=== PATIENT | female | born 1950 | race Caucasian/White ===

== ENCOUNTER 2021-01-01 13:31 | Emergency (ER) | payer MEDICARE, OTHER ==
[2021-01-01 16:26] LABS: BASOPHIL 0.5 % (0-2); EOSINOPHIL 0.8 % (0-7); HCT 40.4 % (37.0-47.0); HGB 13.7 g/dl (12.5-16.0); LYMPHOCYTE 25.3 % (15-48); MCH 28.5 pg (25.0-31.0); MCHC 33.9 g/dL (32.0-36.0); MCV 84.2 fL (78.0-100.0); MONOCYTE 6.7 % (0-12); MPV 10.2 fL (6.0-9.5); NEUTROPHIL 66.3 % (41-80); NRBC 0; PLT 207 K/uL (150-400); RDW 13.3 % (11.5-14.0); WBC 8.3 K/uL (4.0-10.5)
[2021-01-01 16:29] LABS: BILIRUBIN NEGATIVE (NEGATIVE); BLOOD TRACE-INTACT Ery/uL (NEGATIVE); CLARITY CLEAR (CLEAR); COLOR YELLOW (YELLOW); GLUCOSE (U) 3+ mg/dL (NORMAL); LEUKOCYTES NEGATIVE Leu/uL (NEGATIVE); NITRITE POSITIVE (NEGATIVE); PROTEIN 1+ mg/dL (NEGATIVE); SPECIFIC GRAVITY >=1.030 (1.001-1.030); UROBILINOGEN 0.2 mg/dL (0.2-1.0); pH 5.5 (5.0-9.0)
[2021-01-01 16:31] LABS: AMPHETAMINES NEGATIVE (NEGATIVE); BARBITURATES NEGATIVE (NEGATIVE); ECSTASY (MDMA) NEGATIVE (NEGATIVE); MARIJUANA (THC) NEGATIVE (NEGATIVE); METHADONE NEGATIVE (NEGATIVE); OPIATES NEGATIVE (NEGATIVE); OXYCODONE NEGATIVE (NEGATIVE)
[2021-01-01 16:37] LABS: BACTERIA 1+
[2021-01-01 16:58] LABS: ALBUMIN 3.5 g/dL (3.4-5.0); ALKALINE PHOSHATASE 123 U/L (46-116); ALT 15 U/L (14-59); AST 12 U/L (15-37); BILIRUBIN - TOTAL 0.6 mg/dL (0.2-1.0); BUN 15 mg/dL (7-18); BUN/CREAT RATIO (CALC) 25.9 RATIO; CHLORIDE 99 mmol/L (98-107); CO2 (BICARBONATE) 25 mmol/L (21-32); CREATININE 0.58 mg/dL (0.51-0.95); GLOBULIN (CALCULATION) 3.2 g/dL; GLUCOSE 305 mg/dL (74-106); POTASSIUM 3.3 mmol/L (3.5-5.1); TOTAL PROTEIN 6.7 g/dL (6.4-8.2)
== END 2021-01-01 19:31 | disposition home or self-care (01) ==
LOC: FER 13:31
PROVIDERS: Emergency Medicine
DX: M54.9 Dorsalgia, unspecified (principal); G89.29 Other chronic pain; E11.9 Type 2 diabetes mellitus without complications; I10 Essential (primary) hypertension; I25.10 Atherosclerotic heart disease of native coronary artery without angina pectoris; J44.9 Chronic obstructive pulmonary disease, unspecified; I69.954 Hemiplegia and hemiparesis following unspecified cerebrovascular disease affecting left non-dominant side; F17.210 Nicotine dependence, cigarettes, uncomplicated
CPT/HCPCS: 36415; 71045; 72100; 80053; 80305; 81001; 85025; 87076; 87088; 87186; G0480; J1885

== ENCOUNTER 2021-01-15 09:24 | Inpatient (IN) | payer MEDICARE, OTHER ==
[2021-01-15 09:57] LABS: BASOPHIL 0.8 % (0-2); EOSINOPHIL 0.9 % (0-7); HCT 40.3 % (37.0-47.0); HGB 13.6 g/dl (12.5-16.0); LYMPHOCYTE 19.8 % (15-48); MCH 28.4 pg (25.0-31.0); MCHC 33.7 g/dL (32.0-36.0); MCV 84.1 fL (78.0-100.0); MONOCYTE 5.9 % (0-12); MPV 10.5 fL (6.0-9.5); NEUTROPHIL 72.2 % (41-80); NRBC 0; PLT 214 K/uL (150-400); RBC 4.79 M/uL (4.20-5.40); RDW 13.2 % (11.5-14.0); WBC 7.4 K/uL (4.0-10.5)
[2021-01-15 10:02] LABS: BILIRUBIN NEGATIVE (NEGATIVE); BLOOD TRACE-INTACT Ery/uL (NEGATIVE); CLARITY CLEAR (CLEAR); COLOR YELLOW (YELLOW); GLUCOSE (U) 3+ mg/dL (NORMAL); LEUKOCYTES NEGATIVE Leu/uL (NEGATIVE); NITRITE NEGATIVE (NEGATIVE); PROTEIN TRACE (LOW) mg/dL (NEGATIVE); SPECIFIC GRAVITY 1.015 (1.001-1.030)
[2021-01-15 10:03] LABS: AMPHETAMINES NEGATIVE (NEGATIVE); BARBITURATES NEGATIVE (NEGATIVE); ECSTASY (MDMA) NEGATIVE (NEGATIVE); MARIJUANA (THC) NEGATIVE (NEGATIVE); METHADONE NEGATIVE (NEGATIVE); OPIATES NEGATIVE (NEGATIVE); OXYCODONE NEGATIVE (NEGATIVE)
[2021-01-15 10:04] LABS: INR 0.96 (0.9-1.2); PROTHROMBIN TIME 12.1 SECONDS (11.4-13.6); PTT 28.2 SECONDS (22.2-34.7)
[2021-01-15 10:10] LABS: BACTERIA 1+; YEAST PRESENT
[2021-01-15 10:11] LABS: ALBUMIN 3.3 g/dL (3.4-5.0); BILIRUBIN - TOTAL 0.4 mg/dL (0.2-1.0); BUN/CREAT RATIO (CALC) 33.9 RATIO; CREATININE 0.59 mg/dL (0.51-0.95); GLOBULIN (CALCULATION) 2.9 g/dL; POTASSIUM 4.4 mmol/L (3.5-5.1); TOTAL PROTEIN 6.2 g/dL (6.4-8.2)
[2021-01-15 10:24] LABS: CKMB 1.9 ng/mL (0.0-3.6)
--- NOTE | 2021-01-15 15:24 | NUR ---
CALLED [facility] TWICE LET RING FOR 20 MIN AND NO ANSWER, BUT WAS HUNG UP ON. 01/15/21 @ [id number]
[2021-01-15] MEDS ORDERED: PRINIVIL10 MG PO (16:43)
[2021-01-15] MEDS ORDERED: JARDIANCE25 MG PO (16:44)
[2021-01-15] MEDS ORDERED: METFORMIN HCL500 MG PO (16:45)
[2021-01-15] MEDS ORDERED: PROTONIX 40MG T40 MG PO (16:45)
[2021-01-15] MEDS ORDERED: ATORVASTATIN CA80 MG PO (16:46)
[2021-01-15] MEDS ORDERED: SYNTHROID25 MCG PO (16:47)
[2021-01-15] MEDS ORDERED: HUMALOG 75100 UNIT/M SQ (16:47)
[2021-01-15] MEDS ORDERED: NORCO 5-325 TA1 EACH PO (16:48)
[2021-01-16 05:13] LABS: BUN/CREAT RATIO (CALC) 38.2 RATIO; CREATININE 0.68 mg/dL (0.51-0.95); POTASSIUM 4.3 mmol/L (3.5-5.1); URIC ACID 3.3 mg/dL (2.6-6.2)
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
--- NOTE | 2021-01-16 11:21 | NUR ---
PER , PT IS NOT A CANDIATE FOR SURGERY, BUT WILL NEED REHAB. DISCUSSED WITH PT. VIA PHONE SHE IS COVID POS. SHE COULD NOT GIVE INFORMATON REGARDING HER FIRST COVID TEST, BUT IT WAS SOMETIME AGO. I ADVISED HER THAT HER OPTION FOR REHAB AT THIS TIME IS [facility] DUE TO HER POS COVID TEST. PT. STATED THAT WOULD BE FINE AND TO MAKE THE REFERRAL. DR. LANDEROS WILL HAVE PHYSICAL THERAPY TO SEE PT. IN THE MORNING THEY ARE NOT WORKING ON SUNDAY. I ADVISED DR. LANDEROS THAT PT. IS A [facility] MEDICARE ADVANTAGE AND WILL REQUIRE AN AUTH.
[2021-01-17 03:56] LABS: BUN/CREAT RATIO (CALC) 38.8 RATIO; CREATININE 0.67 mg/dL (0.51-0.95); POTASSIUM 4.3 mmol/L (3.5-5.1)
--- NOTE | 2021-01-17 15:05 | NUR ---
SPOKE WITH JAYDA, SHE ADVISED THE ONLY FACILITY AVAILABLE IS IN [place]. ADVISED MS. LOGAN OF THE LOCATION OF THE FACILITY. SHE DECLINED AND SAID SHE WANTED TO HOME. SHE WILL ACCEPT HH. SHE REQUESTED [facility]. SHE SAID THAT SHE WOULD NEED A ROLLING WALKER, WHEELCHAIR AND 01/17. ADVISED MS. LOGAN I WOULD SEND REQUEST TO [facility], BUT HER INSURNACE WOULD DETERMINED IF SHE COULD GET A ROLLING WALKER AND WHEELCHAIR AT THE SAME TIME. SENT REQUEST TO [facility] IS TO CALL HER WITH THE DETERMINATION. TC. TO MR. CHO, PT. BOYFRIEND. HE WAS NOT IN AGREEMENT FOR PT. TO GO TO [place] AND WANTED HER TO COME HOME. HE STATED THAT HE CAN PICK HER UP BETWEEN 9-10 A.M. Sunday.
--- NOTE | 2021-01-17 15:07 | NUR ---
ADVISED NURSEMAUREEN OF THE PLANS FOR PT. TO RETURN HOME.
[2021-01-18 03:45] LABS: CREATININE 0.54 mg/dL (0.51-0.95); POTASSIUM 4.2 mmol/L (3.5-5.1)
--- NOTE | 2021-01-18 08:25 | NUR ---
0810-PT CALLED OUT C/O CP, PT RESTING IN BED, NO SIGNS OF DISTRESS, CALLED FOR EKG STAT, MD NOTIFIED, ORDER FOR TROPONIN RECIEVED, EKG DONE AND BLOOD SENT TO LAB, PT REPORTS CP HAS BEEN GOING ON ALL MORNING. ALL VITALS STABLE, WILL CONTINUE TO MONITOR
--- NOTE | 2021-01-18 13:58 | NUR ---
FOUND THAT [facility] IN [place] WILL ACCEPT COVID POS. PERMISSION FROM PT. TO SEND A REFERRAL TO [facility]. SENT REFERRAL VIA [facility]...
--- NOTE | 2021-01-18 16:16 | NUR ---
[facility] ADVISED THEY COULD NOT OFFER A BED. SENT REFERRALS TO MULTIPLE FACILITIES. REBEKAHESTUARDO [facility] WOULD BE WILLING TO LOOK AT THE PT. IF I CAN LOCATE THE FIRST COVID TEST. ASKED PT. AND SHE THINKS SHE WAS AT [facility] WHEN TESTED. CALLED [facility] AND SPOKE WITH AMALIA. HE IS GOING TO TRY TO FIND THE INFORMATION AND FAX TO ME.
[2021-01-19 03:59] LABS: BUN/CREAT RATIO (CALC) 34.8 RATIO; CREATININE 0.66 mg/dL (0.51-0.95); POTASSIUM 4.3 mmol/L (3.5-5.1)
--- NOTE | 2021-01-19 14:32 | NUR ---
PER JAYDA AT [facility] SHE HAS FOUND AN ACCEPTING FACILITY AT [facility] IN [place]. PT. IS REFUSING PLACEMENT. ADVISED DR. OLIVEIRA OF PT. REFUSAL. HE IS TO SPEAK WTIH PATIENT.
--- NOTE | 2021-01-19 14:56 | NUR ---
SPOKE WITH PT. AGAIN, SHE IS NOW AGREEABLE TO GO TO [facility]. TC STAS MONTELONGO SHE WILL START AUTH PROCESS.
--- NOTE | 2021-01-19 15:10 | NUR ---
PT. HAS CHANGED HER MIND AND WANTS TO GO HOME. TC TO [facility] AND EXPLAINED THAT SHE IS NOW REFUSING REHAB AGAIN AND WANTS TO COME HOME. HE STATED THAT HE COULD NOT PICK HER UP UNTIL LATER TONIGHT. MADE REFERRAL TO [facility]. [facility] DELIVER[facility] A WHEELCHAIR AND 01/17.
--- NOTE | 2021-01-19 15:28 | NUR ---
VERIFIED WITH JOSE FRANCISCO AT [facility] THAT PT ONLY QUALIFED FOR WHEELCHAIR AND 01/17. ADVISED KRISTEN CRONIN OF THE INFORMATION. PER MG LUANR. MED/SURG, JUST NOTIFIED [facility] THAT PT. HAS TOLD NURSE HER DAUGHTER IS COMING TO GET HER.
[2021-01-19] MEDS ORDERED: NORCO 5-325 TA1 EACH PO (17:03)
== END 2021-01-19 19:00 | disposition home health service (06) | DRG 535 ==
LOC: FER 09:24 → FMS 11:33
PROVIDERS: Emergency Medicine; ADMIT Allergy & Immunology Allergy
DX: S72.112A Displaced fracture of greater trochanter of left femur, initial encounter for closed fracture (principal); U07.1 COVID-19; I21.A1 Myocardial infarction type 2; W19.XXXA Unspecified fall, initial encounter; Y92.009 Unspecified place in unspecified non-institutional (private) residence as the place of occurrence of the external cause; E11.65 Type 2 diabetes mellitus with hyperglycemia; I10 Essential (primary) hypertension; E78.5 Hyperlipidemia, unspecified; E03.9 Hypothyroidism, unspecified; I25.10 Atherosclerotic heart disease of native coronary artery without angina pectoris; Z88.6 Allergy status to analgesic agent; Z86.73 Personal history of transient ischemic attack (TIA), and cerebral infarction without residual deficits; Z79.4 Long term (current) use of insulin; F17.200 Nicotine dependence, unspecified, uncomplicated
CPT/HCPCS: 36415; 71045; 72170; 73600; 73700; 80048; 80053; 80061; 80305; 81001; 82553; 82962; 83036; 84443; 84484; 84550; 85025; 85610; 85730; 93005; 97110; 97116; 97162; 97166; 97530-GP; 97535; J1170; J1650; J2405; J7030; U0002

== ENCOUNTER 2021-03-04 17:11 | Emergency (ER) | payer MEDICARE, OTHER ==
[~2021-03-04 17:11] MED LIST: ATORVASTATIN CA80 MG PO; HUMALOG 75100 UNIT/M SQ; JARDIANCE25 MG PO; METFORMIN HCL500 MG PO; NORCO 5-325 TA1 EACH PO; PRINIVIL10 MG PO; PROTONIX 40MG T40 MG PO; SYNTHROID25 MCG PO
== END 2021-03-04 20:51 | disposition home or self-care (01) ==
LOC: FER 17:11
DX: S00.93XA Contusion of unspecified part of head, initial encounter (principal); M25.571 Pain in right ankle and joints of right foot; M25.572 Pain in left ankle and joints of left foot; E11.9 Type 2 diabetes mellitus without complications; E03.9 Hypothyroidism, unspecified; Z86.73 Personal history of transient ischemic attack (TIA), and cerebral infarction without residual deficits; W22.8XXA Striking against or struck by other objects, initial encounter; Y92.009 Unspecified place in unspecified non-institutional (private) residence as the place of occurrence of the external cause
CPT/HCPCS: 70450; 72125

== ENCOUNTER 2021-05-26 19:54 | Emergency (ER) | payer MEDICARE, OTHER ==
[2021-05-26 21:00] LABS: BASOPHIL 0.6 % (0-2); EOSINOPHIL 1.3 % (0-7); HCT 40.9 % (37.0-47.0); HGB 14.3 g/dl (12.5-16.0); LYMPHOCYTE 30.8 % (15-48); MCH 28.7 pg (25.0-31.0); MONOCYTE 6.2 % (0-12); MPV 10.8 fL (6.0-9.5); NRBC 0; PLT 168 K/uL (150-400); RBC 4.99 M/uL (4.20-5.40); RDW 13.3 % (11.5-14.0); WBC 6.9 K/uL (4.0-10.5)
[2021-05-26 21:18] LABS: ALBUMIN 3.3 g/dL (3.4-5.0); BILIRUBIN - TOTAL 0.5 mg/dL (0.2-1.0); BUN/CREAT RATIO (CALC) 24.6 RATIO; CREATININE 0.57 mg/dL (0.51-0.95); GLOBULIN (CALCULATION) 2.7 g/dL; POTASSIUM 3.8 mmol/L (3.5-5.1)
[2021-05-26 21:44] LABS: BILIRUBIN NEGATIVE (NEGATIVE); BLOOD NEGATIVE Ery/uL (NEGATIVE); CLARITY CLEAR (CLEAR); COLOR YELLOW (YELLOW); GLUCOSE (U) 3+ mg/dL (NORMAL); LEUKOCYTES NEGATIVE Leu/uL (NEGATIVE); NITRITE NEGATIVE (NEGATIVE); PROTEIN TRACE (LOW) mg/dL (NEGATIVE); SPECIFIC GRAVITY 1.015 (1.001-1.030); UROBILINOGEN 0.2 mg/dL (0.2-1.0)
[2021-05-26 21:52] LABS: AMORPHOUS URATES CRYSTALS LARGE; BACTERIA 1+; GRANULAR CASTS TRACE
[2021-05-26] MEDS ORDERED: METFORMIN HCL500 MG PO (22:02)
== END 2021-05-26 22:32 | disposition home or self-care (01) ==
LOC: FER 19:54
PROVIDERS: Emergency Medicine
DX: R73.9 Hyperglycemia, unspecified (principal); J44.9 Chronic obstructive pulmonary disease, unspecified; F17.210 Nicotine dependence, cigarettes, uncomplicated; Z86.73 Personal history of transient ischemic attack (TIA), and cerebral infarction without residual deficits
CPT/HCPCS: 36415; 71046; 80053; 81001; 85025

== ENCOUNTER 2021-10-17 15:15 | Day surgery (SDCO) | payer MEDICARE, OTHER ==
[~2021-10-17] VITALS: Ht 162.6 cm; Wt 78.6 kg
[2021-10-17 16:41] LABS: BASOPHIL 0.7 % (0-2); EOSINOPHIL 1.3 % (0-7); HCT 47.3 % (37.0-47.0); HGB 15.8 g/dl (12.5-16.0); LYMPHOCYTE 20.9 % (15-48); MCH 28.3 pg (25.0-31.0); MCHC 33.4 g/dL (32.0-36.0); MCV 84.6 fL (78.0-100.0); MONOCYTE 6.5 % (0-12); MPV 11.3 fL (6.0-9.5); NEUTROPHIL 70.3 % (41-80); NRBC 0; PLT 186 K/uL (150-400); RBC 5.59 M/uL (4.20-5.40); WBC 7.6 K/uL (4.0-10.5)
[2021-10-17 16:55] LABS: ALBUMIN 3.9 g/dL (3.4-5.0); BILIRUBIN - TOTAL 0.4 mg/dL (0.2-1.0); BUN/CREAT RATIO (CALC) 30.9 RATIO; CREATININE 0.55 mg/dL (0.51-0.95); GLOBULIN (CALCULATION) 3.8 g/dL; POTASSIUM 3.8 mmol/L (3.5-5.1); TOTAL PROTEIN 7.7 g/dL (6.4-8.2)
[2021-10-17 17:24] LABS: BILIRUBIN NEGATIVE (NEGATIVE); BLOOD NEGATIVE Ery/uL (NEGATIVE); CLARITY CLEAR (CLEAR); COLOR YELLOW (YELLOW); GLUCOSE (U) 3+ mg/dL (NORMAL); LEUKOCYTES NEGATIVE Leu/uL (NEGATIVE); NITRITE NEGATIVE (NEGATIVE); PROTEIN NEGATIVE (NEGATIVE); SPECIFIC GRAVITY 1.015 (1.001-1.030); UROBILINOGEN 0.2 mg/dL (0.2-1.0)
[2021-10-18 06:15] LABS: BASOPHIL 0.5 % (0-2); EOSINOPHIL 1.2 % (0-7); HCT 41.3 % (37.0-47.0); HGB 13.6 g/dl (12.5-16.0); LYMPHOCYTE 23.3 % (15-48); MCH 27.7 pg (25.0-31.0); MCHC 32.9 g/dL (32.0-36.0); MCV 84.1 fL (78.0-100.0); MONOCYTE 6.2 % (0-12); MPV 10.8 fL (6.0-9.5); NEUTROPHIL 68.4 % (41-80); NRBC 0; PLT 182 K/uL (150-400); RBC 4.91 M/uL (4.20-5.40); RDW 13.1 % (11.5-14.0); WBC 7.5 K/uL (4.0-10.5)
[2021-10-18 06:48] LABS: BUN/CREAT RATIO (CALC) 24.2 RATIO; CREATININE 0.62 mg/dL (0.51-0.95); POTASSIUM 3.9 mmol/L (3.5-5.1)
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
--- NOTE | 2021-10-19 02:26 | NUR ---
TOOK OVER PT @ [id number]....KRISTEN VALE.
--- NOTE | 2021-10-19 02:33 | NUR ---
10/18/212229 PT WAS EDUCATED ON DRINKING THE MIRALAX TO GET CLEAR BEFORE HER SCOPE SCHEDULED FOR TOMORROW. PT. STATED THAT SHE DID NOT WANT TO DRINK IT. I TOLD HER THAT THEY WOULD NOT BE ABLE TO SCOPE HER UNLESS HER BOWELS WERE CLEAR. PT. STATED THAT SHE UNDERSTOOD. WILL CONTINUE TO MONITOR. ER,RN
--- NOTE | 2021-10-19 02:38 | NUR ---
THIS NURSE ATTEMPTING TO GET PT TO DRINK THE MIRALX ORDERED SO THAT TESTING MAY BY COMPLETED TOMORROW BUT PT REFUSING. "I JUST CANT DRINK ANYMORE". WILL CONT TO TRY TO GET HER TO CONSUME MUCH POSSIBLE.
--- NOTE | 2021-10-19 03:37 | NUR ---
protonix appears late however, per report it was not pulled because pt is on a drip & others isn't finished yet. It remains unfinished. This murse is monitoring.
--- NOTE | 2021-10-19 15:41 | NUR ---
10/19/21 Ms. Powers co-owns a house with her BF. Her daughter, the daughter's boyfriend, and a 20 y/o grandson live in the home. She reports to have a rw. Ms. Powers reports to be modified independent with her ALDs and mobility. Her daughter performs the houseworks.
[2021-10-20 06:30] LABS: BASOPHIL 0.7 % (0-2); EOSINOPHIL 1.3 % (0-7); HCT 38.8 % (37.0-47.0); HGB 12.8 g/dl (12.5-16.0); LYMPHOCYTE 25.5 % (15-48); MCH 27.9 pg (25.0-31.0); MCV 84.5 fL (78.0-100.0); MONOCYTE 7.4 % (0-12); NEUTROPHIL 64.8 % (41-80); NRBC 0; PLT 165 K/uL (150-400); RBC 4.59 M/uL (4.20-5.40); RDW 13.2 % (11.5-14.0)
[2021-10-20 07:07] LABS: ALBUMIN 2.7 g/dL (3.4-5.0); BILIRUBIN - TOTAL 0.7 mg/dL (0.2-1.0); BUN/CREAT RATIO (CALC) 25.4 RATIO; CREATININE 0.59 mg/dL (0.51-0.95); GLOBULIN (CALCULATION) 2.9 g/dL; POTASSIUM 3.7 mmol/L (3.5-5.1)
[2021-10-20 07:41] LABS: TOTAL PROTEIN 5.6 g/dL (6.4-8.2)
[2021-10-20] MEDS ORDERED: CARAFATE1 GM PO (14:04)
[2021-10-20] MEDS ORDERED: MIRALAX17 GM PO (14:04)
--- NOTE | 2021-10-20 15:15 | NUR ---
10/20/21 Ms. Powers would like [facility] and a wc from [facility]. Jac Haney ordered the wc through [facility]. Ms. Powers does not have a PCP. The Resource rod piler danitza and appointment with Dr. Vanessa on 10/27/21 at 2:30. Luana with [facility] will contact Dr. Vanessa's office after the appointment to request HH orders.
== END 2021-10-20 17:40 | disposition home health service (06) ==
LOC: FER 15:15 → FMS 17:55 → FTCU 17:55 → FMS 10-18 21:19
PROVIDERS: Internal Medicine; Nurse Practitioner; ADMIT Internal Medicine
DX: K31.89 Other diseases of stomach and duodenum (principal); K22.10 Ulcer of esophagus without bleeding; K29.80 Duodenitis without bleeding; K25.9 Gastric ulcer, unspecified as acute or chronic, without hemorrhage or perforation; K44.9 Diaphragmatic hernia without obstruction or gangrene; K63.89 Other specified diseases of intestine; K64.4 Residual hemorrhoidal skin tags; K59.09 Other constipation; F03.90 Unspecified dementia, unspecified severity, without behavioral disturbance, psychotic disturbance, mood disturbance, and anxiety; I69.354 Hemiplegia and hemiparesis following cerebral infarction affecting left non-dominant side; E11.9 Type 2 diabetes mellitus without complications; I10 Essential (primary) hypertension; E78.5 Hyperlipidemia, unspecified; E03.9 Hypothyroidism, unspecified; I25.10 Atherosclerotic heart disease of native coronary artery without angina pectoris; J44.9 Chronic obstructive pulmonary disease, unspecified; F17.210 Nicotine dependence, cigarettes, uncomplicated; Z86.16 Personal history of COVID-19; Z79.4 Long term (current) use of insulin; Z79.84 Long term (current) use of oral hypoglycemic drugs; Z79.899 Other long term (current) drug therapy; Z95.1 Presence of aortocoronary bypass graft; Z20.822 Contact with and (suspected) exposure to COVID-19
CPT/HCPCS: 36415; 80048; 80053; 81003; 82962; 83036; 83690; 84145; 84484; 85025; 93005; 97162; 97166; 97530-GP; 97535; C9113; G0378; J2270; J2405; J2550; J2704; J7030; J7120; U0002

== ENCOUNTER 2021-11-30 20:23 | Inpatient (IN) | payer MEDICARE, OTHER ==
[~2021-11-30] VITALS: Ht 162.6 cm; Wt 73.3 kg
[~2021-11-30 20:23] MED LIST changes: +CARAFATE1 GM PO; +MIRALAX17 GM PO
[2021-11-30 23:24] LABS: BASOPHIL 0.5 % (0-2); EOSINOPHIL 1.3 % (0-7); HGB 12.8 g/dl (12.5-16.0); LYMPHOCYTE 28.6 % (15-48); MCH 27.6 pg (25.0-31.0); MCHC 33.7 g/dL (32.0-36.0); MCV 81.9 fL (78.0-100.0); MONOCYTE 6.7 % (0-12); MPV 10.7 fL (6.0-9.5); NEUTROPHIL 62.6 % (41-80); NRBC 0; PLT 184 K/uL (150-400); RBC 4.64 M/uL (4.20-5.40); RDW 12.9 % (11.5-14.0); WBC 7.5 K/uL (4.0-10.5)
[2021-11-30 23:53] LABS: ALBUMIN 3.1 g/dL (3.4-5.0); ALKALINE PHOSHATASE 112 U/L (46-116); ALT 25 U/L (14-59); AST 31 U/L (15-37); BILIRUBIN - TOTAL 0.5 mg/dL (0.2-1.0); BUN 13 mg/dL (7-18); BUN/CREAT RATIO (CALC) 27.7 RATIO; CHLORIDE 97 mmol/L (98-107); CO2 (BICARBONATE) 31 mmol/L (21-32); CREATININE 0.47 mg/dL (0.51-0.95); GLOBULIN (CALCULATION) 2.9 g/dL; GLUCOSE 343 mg/dL (74-106); POTASSIUM 3.4 mmol/L (3.5-5.1)
[2021-12-02 08:51] LABS: BILIRUBIN NEGATIVE (NEGATIVE); BLOOD NEGATIVE Ery/uL (NEGATIVE); CLARITY CLOUDY (CLEAR); COLOR YELLOW (YELLOW); GLUCOSE (U) 1+ mg/dL (NORMAL); LEUKOCYTES NEGATIVE Leu/uL (NEGATIVE); NITRITE NEGATIVE (NEGATIVE); PROTEIN TRACE (LOW) mg/dL (NEGATIVE); SPECIFIC GRAVITY 1.025 (1.001-1.030)
[2021-12-02 09:16] LABS: BACTERIA 3+
[2021-12-03 13:08] LABS: BASOPHIL 0.6 % (0-2); EOSINOPHIL 0.6 % (0-7); HCT 40.7 % (37.0-47.0); HGB 13.7 g/dl (12.5-16.0); LYMPHOCYTE 21.6 % (15-48); MCH 27.7 pg (25.0-31.0); MCHC 33.7 g/dL (32.0-36.0); MCV 82.4 fL (78.0-100.0); MONOCYTE 6.4 % (0-12); MPV 10.5 fL (6.0-9.5); NEUTROPHIL 70.2 % (41-80); NRBC 0; PLT 184 K/uL (150-400); RBC 4.94 M/uL (4.20-5.40); RDW 12.7 % (11.5-14.0); WBC 6.6 K/uL (4.0-10.5)
[2021-12-03 13:23] LABS: ALBUMIN 3.3 g/dL (3.4-5.0); BILIRUBIN - TOTAL 0.7 mg/dL (0.2-1.0); BUN/CREAT RATIO (CALC) 28.1 RATIO; CREATININE 0.57 mg/dL (0.51-0.95); GLOBULIN (CALCULATION) 3.3 g/dL; TOTAL PROTEIN 6.6 g/dL (6.4-8.2)
--- NOTE | 2021-12-04 05:51 | NUR ---
PER PT: "I AM NOT A DIAGNOSED DIABETIC BUT MY SUGAR WAS HIGH IN ED." SLIDING SCALE WAS ORDERED.
[2021-12-07 06:49] LABS: BUN/CREAT RATIO (CALC) 30.3 RATIO; CREATININE 0.66 mg/dL (0.51-0.95); POTASSIUM 4.5 mmol/L (3.5-5.1)
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
--- NOTE | 2021-12-12 15:05 | NUR ---
12/12/21 [facility] in [place], [place] has accepted Ms. Powers for admission on 12/13/21. Ms. Powers has accepted the placement and Cindy Church, , has agreed to sign the admission paperwork. Please call report to: [phone] and fax DS to: . A new COVID test is required within 48 hours of admission. Report given to MS KRISTEN Rai and Dr. Shen.
[2021-12-13] MEDS ORDERED: DULERA 200 MCG8.8 GM INH (10:02)
[2021-12-13] MEDS ORDERED: HABITROL7 MG TD (10:02)
[2021-12-13] MEDS ORDERED: ASPIRIN EC81 M1 PO (10:02)
[2021-12-13] MEDS ORDERED: NICOTROL10 MG INH (10:02)
[2021-12-13] MEDS ORDERED: ATIVAN1 MG PO (10:23)
[2021-12-13] MEDS ORDERED: NORCO 5-325 TA1 EACH PO (10:26)
[2021-12-13] MEDS ORDERED: NORVASC5 MG PO (10:40)
== END 2021-12-13 14:55 | DRG 191 ==
LOC: FER 20:23 → FMS 12-03 14:32
PROVIDERS: Emergency Medicine; Family Medicine; ADMIT Internal Medicine
DX: J44.1 Chronic obstructive pulmonary disease with (acute) exacerbation (principal); J45.901 Unspecified asthma with (acute) exacerbation; N30.00 Acute cystitis without hematuria; I69.354 Hemiplegia and hemiparesis following cerebral infarction affecting left non-dominant side; Z20.822 Contact with and (suspected) exposure to COVID-19; S20.311A Abrasion of right front wall of thorax, initial encounter; W06.XXXA Fall from bed, initial encounter; E11.9 Type 2 diabetes mellitus without complications; F17.210 Nicotine dependence, cigarettes, uncomplicated; I10 Essential (primary) hypertension; E03.9 Hypothyroidism, unspecified; E78.5 Hyperlipidemia, unspecified; I25.10 Atherosclerotic heart disease of native coronary artery without angina pectoris; R45.1 Restlessness and agitation; Z59.00 Homelessness unspecified; Z88.5 Allergy status to narcotic agent; R29.6 Repeated falls; Z79.899 Other long term (current) drug therapy
CPT/HCPCS: 36415; 71250; 72170; 80048; 80053; 81001; 82962; 84443; 84484; 85025; 87088; 93005; 94010; 94640; 97162; 97166; 97530-GP; 97535; G0378; G0480; J0696; J1650; J2060; U0002